=== PATIENT | female | born 1945 | race Caucasian/White ===

== ENCOUNTER 2017-12-20 07:45 | Day surgery (SDC) | payer MEDICARE, BC ==
[~2017-12-20] VITALS: Ht 165.1 cm; Wt 78.2 kg
[2017-12-20 08:52] VITALS: BP 131/68
[2017-12-20] MEDS ORDERED: BUPIVACAINE 0.25% ONE (09:01)
[2017-12-20] MEDS ORDERED: SODIUM CHLORIDE FLUSH 10ML SYR IVF SCH (21:00)
== END 2017-12-20 10:07 | disposition home or self-care (01) ==
LOC: CACL 07:45
PROVIDERS: ATTEND Internal Medicine Cardiovascular Disease
DX: Z45.09 Encounter for adjustment and management of other cardiac device (principal); I63.9 Cerebral infarction, unspecified; I10 Essential (primary) hypertension; E78.00 Pure hypercholesterolemia, unspecified; E03.9 Hypothyroidism, unspecified; Z87.891 Personal history of nicotine dependence; Z79.82 Long term (current) use of aspirin; Z88.1 Allergy status to other antibiotic agents; Z88.5 Allergy status to narcotic agent; Z88.8 Allergy status to other drugs, medicaments and biological substances
CPT/HCPCS: 33282; C1764; J3490

== ENCOUNTER → 2019-05-03 | Outpatient (CLI) | payer MEDICARE, BC ==
[~2019-05-03] MED LIST: ALIR75PE INJ; ASPI81TA45 PO; CHOL100011 PO; CLOP75TA52 PO; CYAN-27 PO; DOCU100C33 PO; ENAL20TA PO; FISH1CAP PO; FOLI-17 PO; GABA300C10 PO; HYDR-3342 PO; LEVO88TA2 PO; MULT-658 PO; NEBI20TA2 PO; OXYC5CAP2 PO; PANT40TA5 PO; ROPI0.5T4 PO; THIA100T67 PO; UBID100C24 PO
== END | disposition home or self-care (01) ==
LOC: CVU 09:10
PROVIDERS: ATTEND Internal Medicine Cardiovascular Disease
DX: I65.23 Occlusion and stenosis of bilateral carotid arteries (principal); I10 Essential (primary) hypertension; Z85.3 Personal history of malignant neoplasm of breast
CPT/HCPCS: 93880

== ENCOUNTER 2019-05-04 10:54 | Day surgery (SDC) | payer MEDICARE, BC ==
[~2019-05-04] VITALS: Ht 165.1 cm; Wt 83.6 kg
[2019-05-04] MEDS ORDERED: SODIUM CHLORIDE 0.9% 1,000 ML IV ONE (11:30)
[2019-05-04 11:34] VITALS: BP 162/73
[2019-05-04] MEDS ORDERED: ENAL20TA PO (11:49)
[2019-05-04] MEDS ORDERED: OXYC5CAP2 PO (11:49)
[2019-05-04] MEDS ORDERED: GABA300C10 PO (11:49)
[2019-05-04] MEDS ORDERED: FOLI-17 PO (11:49)
[2019-05-04] MEDS ORDERED: PANT40TA5 PO (11:49)
[2019-05-04] MEDS ORDERED: UBID100C24 PO (11:49)
[2019-05-04] MEDS ORDERED: NEBI20TA2 PO (11:49)
[2019-05-04] MEDS ORDERED: THIA100T67 PO (11:49)
[2019-05-04] MEDS ORDERED: ALIR75PE INJ (11:49)
[2019-05-04] MEDS ORDERED: ROPI0.5T4 PO (11:49)
[2019-05-04] MEDS ORDERED: FISH1CAP PO (11:49)
[2019-05-04] MEDS ORDERED: LEVO88TA2 PO (11:49)
[2019-05-04] MEDS ORDERED: ASPI81TA45 PO (11:49)
[2019-05-04] MEDS ORDERED: CYAN-27 PO (11:49)
[2019-05-04] MEDS ORDERED: HYDR-3342 PO (11:49)
[2019-05-04] MEDS ORDERED: DOCU100C33 PO (11:49)
[2019-05-04] MEDS ORDERED: MULT-658 PO (11:49)
[2019-05-04] MEDS ORDERED: CHOL100011 PO (11:49)
[2019-05-04] MEDS ORDERED: CLOP75TA52 PO (12:16)
== END 2019-05-04 13:47 | disposition home or self-care (01) ==
LOC: CACL 10:54
PROVIDERS: ATTEND Internal Medicine Cardiovascular Disease
DX: I08.1 Rheumatic disorders of both mitral and tricuspid valves (principal)
CPT/HCPCS: 93312; 93321; 93325; J7030

== ENCOUNTER → 2019-11-24 | Outpatient (CLI) | payer MEDICARE, BC | END | disposition home or self-care (01) | LOC: CVU 12:34 | PROVIDERS: ATTEND Internal Medicine Cardiovascular Disease | DX: R53.1 Weakness (principal); E78.00 Pure hypercholesterolemia, unspecified; I10 Essential (primary) hypertension; Z85.3 Personal history of malignant neoplasm of breast; Z86.73 Personal history of transient ischemic attack (TIA), and cerebral infarction without residual deficits | CPT/HCPCS: 93922 ==

== ENCOUNTER → 2020-01-26 | Outpatient (CLI) | payer MEDICARE, BC ==
[~2020-01-26] MED LIST changes: -ENAL20TA PO; +ENAL20TA9 PO; -PANT40TA5 PO; +PANT40TA6 PO; +REGADENOSON 0.4 MG/5 ML SYRINGE ONE
== END | disposition home or self-care (01) ==
LOC: CFH 08:41
PROVIDERS: ATTEND Internal Medicine Cardiovascular Disease
DX: Z01.810 Encounter for preprocedural cardiovascular examination (principal); I10 Essential (primary) hypertension
CPT/HCPCS: 78452; 93017; A9502; J2785

== ENCOUNTER 2020-05-01 06:43 | Day surgery (SDC) | payer MEDICARE, BC ==
[~2020-05-01] VITALS: Ht 165.1 cm; Wt 75.5 kg
[~2020-05-01 06:43] MED LIST changes: -FOLI-17 PO; +FOLI1TAB32 PO; -REGADENOSON 0.4 MG/5 ML SYRINGE ONE
[2020-05-01 07:06] VITALS: BP 114/67
[2020-05-01] MEDS ORDERED: LIDOCAINE 2%, 20ML ONE (07:11)
== END 2020-05-01 09:10 | disposition home or self-care (01) ==
LOC: CACL 06:43
PROVIDERS: ATTEND Internal Medicine Cardiovascular Disease
DX: Z45.09 Encounter for adjustment and management of other cardiac device (principal); I63.9 Cerebral infarction, unspecified; I10 Essential (primary) hypertension; E78.5 Hyperlipidemia, unspecified; E03.9 Hypothyroidism, unspecified; G47.30 Sleep apnea, unspecified; E66.3 Overweight; Z68.28 Body mass index [BMI] 28.0-28.9, adult; Z79.02 Long term (current) use of antithrombotics/antiplatelets; Z79.82 Long term (current) use of aspirin; Z79.890 Hormone replacement therapy; Z79.899 Other long term (current) drug therapy; Z87.891 Personal history of nicotine dependence; Z88.2 Allergy status to sulfonamides; Z88.5 Allergy status to narcotic agent; Z88.8 Allergy status to other drugs, medicaments and biological substances
CPT/HCPCS: 33285; 33286; C1764